=== PATIENT | male | born 1950 | race Caucasian/White ===

== ENCOUNTER → 2017-04-11 | Outpatient (CLI) | payer MEDICARE, OTHER ==
[2013-10-03 11:54] VITALS: BMI 38.4
[~2017-04-11] MED LIST: ALB18R INH; ALBU8.5H12 IH; AML5 PO; AMLO-99 PO; ASP81 PO; ASPI81TA87 PO; ATOR10TA24 PO; ATR10 PO; AZIT-17 PO; BENA40TA51 PO; CEPH-13 PO; FLU45SYR25 IM ONLY; FLUT16SP19 NS; FLUT1AER INH; FLUT1DIS29 INH; FURO-45 PO; GLY5 PO; HCTZ25 PO; INSU100I10 SUBQ; INSU100I30 SQ; LANI SQ; LANI SUBQ; LISI-351 PO; LISI-353 PO; LISI-355 PO; LISI1TAB61 PO; METF-410 PO; METF-420 PO; METO-253 PO; METO100T20 PO; METO25TA93 PO; MONT10TA PO; NAPR-1043 PO; NEED-498 MC; OMEP-137 PO; OMEP-218 PO; OXYGENHOME INH; PHEN-460 PO; PHEN15CA69 PO; PIOG30TA27 PO; PRED-1 PO; RAMI5CAP63 PO; RANI-318 PO; RANI-324 PO; ROSU5TAB8 PO; TIO18R INH
== END ==
LOC: LAB 09:21
PROVIDERS: ATTEND Emergency Medicine
DX: E11.9 Type 2 diabetes mellitus without complications (principal)
CPT/HCPCS: 36415; 83036

== ENCOUNTER → 2017-10-14 | Outpatient (CLI) | payer MEDICARE, OTHER ==
[2013-10-03 11:54] VITALS: BMI 38.4
[~2017-10-14] MED LIST changes: -METF-410 PO; +METF-411 PO; +METF-421 PO; -RANI-324 PO; +RANI-366 PO
[2017-10-14 09:31] LABS: PLATELET COUNT, AUTOMATED 163 K/uL (150-450)
[2017-10-14 09:39] LABS: LDL CHOLESTEROL 31 mg/dl
== END ==
LOC: LAB 08:44
PROVIDERS: ATTEND Emergency Medicine
DX: E11.9 Type 2 diabetes mellitus without complications (principal); Z12.5 Encounter for screening for malignant neoplasm of prostate
CPT/HCPCS: 36415; 83036; 85025; G0103; 82040; 82247; 82310; 82374; 82435; 82465; 82565; 82947; 83718; 84075; 84132; 84153; 84155; 84295; 84450; 84460; 84478; 84520

== ENCOUNTER → 2017-10-25 | Outpatient (CLI) | payer MEDICARE, OTHER ==
[2013-10-03 11:54] VITALS: BMI 38.4
[~2017-10-25] MED LIST changes: +AMLO-113 PO; -AMLO-99 PO; -METF-411 PO; -METF-421 PO; +METF-450 PO; +METF-452 PO
== END ==
LOC: LAB 07:40
PROVIDERS: ATTEND Emergency Medicine
DX: Z12.11 Encounter for screening for malignant neoplasm of colon (principal)
CPT/HCPCS: 82274

== ENCOUNTER → 2017-10-27 | Outpatient (CLI) | payer MEDICARE, OTHER ==
[2013-10-03 11:54] VITALS: BMI 38.4
--- NOTE | 2017-10-27 12:02 | RADIOLOGY IMAGING REPORT ---
FACILITY: [facility] - [place] PATIENT NAME: Jac Virk : 1950 MR: [id number] V: [id number] EXAM DATE: ORDERING PHYSICIAN: JENN ORTIZ TECHNOLOGIST: [place] [facility] [place] Jac Virk : 1950 Visit/Account:[id number] Date of Sevice: 10/27/2017 CHEST/AB/PELV W/OUT CONTRAST HISTORY: aortic ectasia, adrenal mass ADDITIONAL HISTORY: None. TECHNIQUE: Contiguous axial images acquired through the chest abdomen and pelvis without IV contrast. Coronal and sagittal reformatting was also performed. Dose Lowering Technique One of the following dose optimization techniques was utilized in the performance of this exam: Autom ated exposure control; adjustment of the mA and/or kV according to the patient's size; or use of an i terative reconstruction technique. Specific details can be referenced in the facility's radiology C T exam operational policy. COMPARISON: CTA chest October 12, [address] chest seven pelvis October 04, 2014 FINDINGS: CHEST: Lungs/Pleura: There are multiple small calcified nodules seen throughout the lungs Mediastinum/lymph nodes: Small mediastinal lymph nodes appear relatively stable Heart/vessels: Fusiform dilatation of the ascending thoracic aorta is slightly increased now measuri ng 4.5 cm in AP dimension as opposed to 4 cm previously. The aortic lumen is not evaluated due to la ck of contrast. There are mild atherosclerotic calcifications in the aortic arch and descending thor acic aorta. Bones/soft tissues: There is a levoconvex scoliosis of the upper thoracic spine with spondylotic jh nges ABDOMEN AND PELVIS: Hepatobiliary: Tiny calcified granuloma Spleen: Negative. Pancreas: Negative. Adrenals: Right adrenal gland appears unremarkable. Three Polylobular left adrenal mass appears well totally unchanged in size measuring 3.6 x 2.6 cm contains some calcifications and areas of fatty density. Kidneys ureters and bladder : There Is mild perinephric stranding bilaterally. There is moderate bl adder wall thickening that appears slightly irregular. Genitalia: Prostate gland is moderately enlarged impinging upon the floor the bladder. The seminal v esicles also appear prominent GI: Negative. Vessels/spaces/nodes: Moderate atherosclerotic calcifications of the abdominal aorta and branch vess els . Small shotty retroperitoneal lymph nodes Bones/soft tissues: Small umbilical hernia containing fat. There are spondylotic changes of the tho racolumbar spine Additional findings: None pertinent. IMPRESSION: Fusiform dilatation of the ascending thoracic aorta is slightly increased now measuring 4.5 cm in AP dimension as opposed to 4 cm previously. Evidence of a prior granulomatous process Polylobular left adrenal mass containing calcium and fat appears relatively unchanged Moderate irregular bladder wall thickening. This could be related to the enlarged prostate gland alt yadiel clinical correlation needed. Report Dictated By: Marisol Jiménez MD at 10/27/2017 11:40 AM Report E-Signed By: Marisol Jiménez MD at 10/27/2017 11:58 AM WSN:[email or web address]
== END ==
LOC: CT 01:19
PROVIDERS: ATTEND Emergency Medicine
DX: I77.810 Thoracic aortic ectasia (principal); K42.9 Umbilical hernia without obstruction or gangrene; K75.3 Granulomatous hepatitis, not elsewhere classified; M41.84 Other forms of scoliosis, thoracic region
CPT/HCPCS: 71250; 74176

== ENCOUNTER → 2017-12-11 | Outpatient (CLI) | payer MEDICARE, OTHER ==
[2013-10-03 11:54] VITALS: BMI 38.4
== END ==
LOC: US 02:06
PROVIDERS: ATTEND Internal Medicine Cardiovascular Disease
DX: I51.7 Cardiomegaly (principal); I72.1 Aneurysm of artery of upper extremity
CPT/HCPCS: 93306

== ENCOUNTER 2017-12-24 01:26 | Day surgery (SDC) | payer MEDICARE, OTHER ==
[2013-10-03 11:54] VITALS: Ht 177.8 cm; Wt 111.1 kg
[~2017-12-24] VITALS: Ht 177.8 cm; Wt 111.1 kg
[2017-12-24 08:11] VITALS: BP 143/79
[2017-12-24] MEDS ORDERED: NORMOSOL R SOLN(*) 1000 ML BAG 1,000 ML IV PRN (08:20)
[2017-12-24] MEDS ORDERED: LIDOCAINE/SOD BICARB 8.4% SYR ID ONE (08:20)
[2017-12-24 09:53] VITALS: BP 111/72
--- NOTE | 2017-12-24 10:00 | Short(Outpt) Discharge Summary ---
Discharge Summary Reason for Hosp/Final Diag: (1) Colon cancer screening Status: Chronic Hospital Course & Plan: Colonoscopy with polypectomy x1 completed without problems. Departure Discharge to: Home, Self Care Discharge Instructions Home Meds Active Scripts Metoprolol Succinate (METOPROLOL SUCCINATE) 100 Mg Tab.er.24h, 1 TAB PO QDAY, #90 TAB 3 Refills Prov:JENN ORTIZ MD 12/12/17 Insulin Glargine,Hum.rec.anlog (Basaglar Kwikpen U-100) 100 Unit/Ml (3 Ml) Insuln.pen, 28-38 UNITS SUBQ BID, #2 BOX 7 Refills 28 units Sub-Q every morning. 38 units Sub-Q every evening. Prov:JENN ORTIZ MD 11/21/17 Rosuvastatin Calcium (CRESTOR) 5 Mg Tablet, 1 TAB PO QDAY, #90 TAB 4 Refills Prov:JENN ORTIZ MD 11/12/17 [place], Insulin Disposable (INSULIN PEN NEEDLE) 1 Each Dis.needle, 1 EACH MC BID, #50 11 Refills Prov:JENN ORTIZ MD 06/24/17 Lisinopril/Hydrochlorothiazide (LISINOPRIL-HCTZ 20-25 MG TAB) 1 Each Tablet, 1.5 TAB PO DAILY, #135 TAB 4 Refills Prov:JENN ORTIZ MD 02/05/17 Montelukast Sodium (SINGULAIR) 10 Mg Tablet, 1 TAB PO QDAY, #30 TAB 11 Refills Prov:JENN ORTIZ MD 12/25/16 Albuterol Sulfate (VENTOLIN HFA) 18 Gm Inh, 2 PUFF INH TID PRN for to help breathing., #1 INH 11 Refills Prov:JENN ORTIZ MD 10/15/16 Fluticasone Prop 50 Mcg Ns (FLONASE 50 MCG NS) 16 Gm [place].susp, 2 SPRAYS NS QDAY, #1 BOT 11 Refills Prov:JENN ORTIZ MD 10/15/16 Metformin Hcl (METFORMIN HCL) 1,000 Mg Tablet, 1 TAB PO BID, #180 TAB 3 Refills TAKE ONE TABLET BY MOUTH TWO TIMES A DAY Prov:JENN ORTIZ MD 10/15/16 Metformin Hcl (METFORMIN HCL) 500 Mg Tablet, 1 TAB PO QDAY, #90 TAB 3 Refills Prov:JENN ORTIZ MD 10/15/16 Furosemide (FUROSEMIDE) 20 Mg Tablet, 1 TAB PO once weekly PRN for edema, #45 TAB 3 Refills Prov:JENN ORTIZ MD 07/01/16 Oxygen (OXYGEN) 2 L Inha, 3 L INH continuous for COPD, #1 UNIT Prov:JENN ORTIZ MD 10/12/15 Reported Medications Aspirin (LO-DOSE ASPIRIN EC) 81 Mg Tablet.dr, 81 MG PO QAM 09/27/13 Diet: Regular Activity: As Tolerated Special Instructions: Your colonoscopy was completed without problems and your prep was excellent (Good Job!!). I removed a small polyp from your colon and it was sent to pathology. My office will call you in the next week or two to let you know what the polyp is and when your next colonoscopy should be (either 5 or 10 years) depending on the pathology results. DAY NAM MD Dec 24, 2017 10:00
[2017-12-24 10:21] VITALS: BP 114/73
[2017-12-24 10:23] VITALS: BP 113/84
[2017-12-24] MEDS ORDERED: PROPOFOL EMUL(*) 10MG/ML 20 ML 60 ML ONE (12:32)
== END 2017-12-24 10:45 | disposition home or self-care (01) ==
LOC: OR 01:26
PROVIDERS: ATTEND Surgery
DX: Z12.11 Encounter for screening for malignant neoplasm of colon (principal); D12.5 Benign neoplasm of sigmoid colon; J44.9 Chronic obstructive pulmonary disease, unspecified; K21.9 Gastro-esophageal reflux disease without esophagitis; E11.9 Type 2 diabetes mellitus without complications; I25.10 Atherosclerotic heart disease of native coronary artery without angina pectoris; G25.81 Restless legs syndrome; E66.9 Obesity, unspecified; E78.00 Pure hypercholesterolemia, unspecified; G47.33 Obstructive sleep apnea (adult) (pediatric); R09.02 Hypoxemia; Z68.35 Body mass index [BMI] 35.0-35.9, adult
CPT/HCPCS: 00811; 36416; 45385; 82948; 88305; J2704

== ENCOUNTER → 2018-04-14 | Outpatient (CLI) | payer MEDICARE, OTHER ==
[2013-10-03 11:54] VITALS: BMI 38.4
[~2018-04-14] MED LIST changes: -AMLO-113 PO; +AMLO-127 PO
== END ==
LOC: LAB 08:41
PROVIDERS: ATTEND Emergency Medicine
DX: E11.9 Type 2 diabetes mellitus without complications (principal); Z79.4 Long term (current) use of insulin
CPT/HCPCS: 36415; 83036

== ENCOUNTER → 2018-05-25 | Outpatient (CLI) | payer MEDICARE, OTHER ==
[2013-10-03 11:54] VITALS: BMI 38.4
[~2018-05-25] MED LIST changes: +UMEC1DIS INH
== END ==
LOC: LAB 09:37
PROVIDERS: ATTEND Emergency Medicine
DX: I10 Essential (primary) hypertension (principal)
CPT/HCPCS: 36415; 82310; 82374; 82435; 82565; 82947; 84132; 84295; 84520

== ENCOUNTER → 2018-06-24 | Outpatient (CLI) | payer MEDICARE, OTHER ==
[2013-10-03 11:54] VITALS: BMI 38.4
== END ==
LOC: LAB 13:42
PROVIDERS: ATTEND Otolaryngology
DX: J30.9 Allergic rhinitis, unspecified (principal)
CPT/HCPCS: 36415; 86003

== ENCOUNTER 2018-09-02 14:57 | Emergency (ER) | payer MEDICARE, OTHER ==
[2013-10-03 11:54] VITALS: Wt 111.3 kg
[~2018-09-02 14:57] MED LIST changes: -LOR5/325 PO
[2018-09-02] MEDS: NITROGLYCERIN 0.4 MG SUBL SL SCH ×3 (15:09→15:37)
[2018-09-02 15:16] LABS: PLATELET COUNT, AUTOMATED 174 K/uL (150-450)
--- NOTE | 2018-09-02 15:18 | ER Report ---
History and Physical Time Seen By MD: 14:55 Hx. of Stated Complaint: CP X 1 HR (GERGORY MANCERA DO) HPI/ROS CHIEF COMPLAINT: chest pain HISTORY OF PRESENT ILLNESS: PT states he was out working on his car and started with chest pain one hour ago. Pain is worse with deep breath. Tight and achy and radiates to left shoulder. no nausea. Never had this pain before. Denies hx of heart attack but does have htn, dm, hyperlipid. EMS gave patient 4 baby asa, morphine 4mg and one nitro which brought his pain from 8/ to 6/. REVIEW OF SYSTEMS: Constitutional: No fever, no chills. Eyes: No discharge. ENT: No sore throat. Cardiovascular: + chest pain, no palpitations. Respiratory: No cough, + shortness of breath. Gastrointestinal: No abdominal pain, no vomiting. Genitourinary: No hematuria. Musculoskeletal: No back pain. Skin: No rashes. Neurological: No headache. (GREGORY MANCERA DO) Allergies: Coded Allergies: simvastatin (Unverified Allergy, Unknown, 09/02/18) Home Meds Active Scripts Ranitidine Hcl (ZANTAC) 150 Mg Tablet, 150 MG PO BID, #60 TAB 0 Refills Prov:JHONNY GUSTAFSON MD 09/02/18 Hydrocodone Bit/Acetaminophen (HYDROCODON-ACETAMINOPHEN 5-325) 1 Each Tablet, 1 EACH PO Q4H PRN for PAIN, #8 TAB 0 Refills Prov:JHONNY GUSTAFSON MD 09/02/18 Rosuvastatin Calcium (CRESTOR) 5 Mg Tablet, 1 TAB PO QDAY, #90 TAB 1 Refill Prov:JENN ORTIZ MD 07/10/18 Furosemide (FUROSEMIDE) 20 Mg Tablet, 1 TAB PO once weekly PRN for edema, #12 TAB 3 Refills Prov:JENN ORTIZ MD 05/28/18 Umeclidinium Brm/Vilanterol Tr (Anoro Ellipta 62.5-25 Mcg INH) 1 Each Disk.w.dev, 1 INHALATION INH DAILY, #3 INH 3 Refills Prov:JENN ORTIZ MD 05/28/18 Lisinopril/Hydrochlorothiazide (LISINOPRIL-HCTZ 20-25 MG TAB) 1 Each Tablet, 2 TAB PO DAILY, #180 TAB 4 Refills Prov:JENN ORTIZ MD 05/08/18 Metformin Hcl (METFORMIN HCL) 1,000 Mg Tablet, 1 TAB PO BID for 90 Days, #180 TAB 3 Refills TAKE ONE TABLET BY MOUTH TWO TIMES A DAY Prov:JENN ORTIZ MD 02/04/18 Montelukast Sodium (SINGULAIR) 10 Mg Tablet, 1 TAB PO QDAY, #30 TAB 11 Refills Prov:JENN ORTIZ MD 01/30/18 Metformin Hcl (METFORMIN HCL) 500 Mg Tablet, 1 TAB PO QDAY, #90 TAB 3 Refills Prov:JENN ORTIZ MD 01/30/18 Metoprolol Succinate (METOPROLOL SUCCINATE) 100 Mg Tab.er.24h, 1 TAB PO QDAY, #90 TAB 3 Refills Prov:JENN ORTIZ MD 12/12/17 Insulin Glargine,Hum.rec.anlog (Basaglar Kwikpen U-100) 100 Unit/Ml (3 Ml) Insuln.pen, 28-38 UNITS SUBQ BID, #2 BOX 7 Refills 28 units Sub-Q every morning. 38 units Sub-Q every evening. Prov:JENN ORTIZ MD 11/21/17 [place], Insulin Disposable (INSULIN PEN NEEDLE) 1 Each Dis.needle, 1 EACH MC BID, #50 11 Refills Prov:JENN ORTIZ MD 06/24/17 Albuterol Sulfate (VENTOLIN HFA) 18 Gm Inh, 2 PUFF INH TID PRN for to help breathing., #1 INH 11 Refills Prov:JENN ORTIZ MD 10/15/16 Fluticasone Prop 50 Mcg Ns (FLONASE 50 MCG NS) 16 Gm [place].susp, 2 SPRAYS NS QDAY, #1 BOT 11 Refills Prov:JENN ORTIZ MD 10/15/16 Oxygen (OXYGEN) 2 L Inha, 3 L INH continuous for COPD, #1 UNIT Prov:JENN ORTIZ MD 10/12/15 Reported Medications Aspirin (LO-DOSE ASPIRIN EC) 81 Mg Tablet.dr, 81 MG PO QAM 09/27/13 Past Medical/Surgical History Pmhx and Pshx: abd aortic aneurysm, hyperlipid, htn, copd, sleep apnea, gerd, hemorrhoids, pud, Dm2, obesity, prostate CA (CALDERONGREGORY V DO) Reviewed Nurses Notes: Yes Old Medical Records Reviewed: Yes (CALDERON,GREGORY V DO) Hx Smoking: Yes (35 YEAR SMOKER PACK/DAY) Smoking Status: Former Smoker Exposure to Second Hand Smoke?: No Hx Substance Use Disorder: No Hx Alcohol Use: No (CALDERON,GREGORY V DO) Constitutional Vital Sign - Last 24 Hours 09/02/18 09/02/18 09/02/18 09/02/18 14:59 15:00 15:03 15:05 Temp 98.5 Pulse 86 91 88 Resp 18 23 23 B/P (MAP) 175/129 175/129 (144) 181/99 (126) Pulse Ox 90 91 95 O2 Delivery Nasal Cannula 09/02/18 09/02/18 09/02/18 09/02/18 15:09 15:10 15:15 15:20 Pulse 86 87 82 Resp 23 B/P (MAP) 168/83 (111) 148/76 (100) 147/87 (107) Pulse Ox 94 93 94 O2 Flow Rate 6.0 09/02/18 09/02/18 09/02/18 09/02/18 15:25 15:30 15:33 15:35 Pulse 78 76 77 B/P (MAP) 146/84 (104) 152/81 (104) 144/80 (101) Pulse Ox 93 94 93 09/02/18 09/02/18 09/02/18 09/02/18 15:40 15:45 15:50 15:55 Pulse 76 78 76 77 B/P (MAP) 143/89 (107) 143/78 (99) 132/81 (98) 137/82 (100) Pulse Ox 94 94 93 93 09/02/18 09/02/18 09/02/18 09/02/18 16:00 16:05 16:10 16:15 Pulse 73 73 74 71 B/P (MAP) 137/76 (96) 141/75 (97) 139/75 (96) Pulse Ox 95 94 94 93 09/02/18 09/02/18 09/02/18 09/02/18 16:20 16:45 17:15 17:30 Pulse 69 67 ??? 66 Resp 19 B/P (MAP) 129/80 (96) 162/74 (103) 137/73 (94) Pulse Ox 93 94 95 09/02/18 09/02/18 09/02/18 09/02/18 17:45 18:00 18:15 18:30 Pulse 67 64 66 67 Resp 10 11 21 16 B/P (MAP) 143/75 (97) 138/69 (92) 127/73 (91) 125/69 (87) Pulse Ox 95 95 95 95 09/02/18 09/02/18 09/02/18 09/02/18 18:35 18:45 18:55 19:00 Pulse 65 65 64 Resp 20 B/P (MAP) 129/73 (91) 134/72 (92) Pulse Ox 95 09/02/18 09/02/18 09/02/18 09/02/18 19:05 19:15 19:25 19:30 Pulse 62 62 64 Resp 12 23 23 B/P (MAP) 130/70 (90) 131/72 (91) Pulse Ox 96 95 94 09/02/18 09/02/18 09/02/18 09/02/18 19:35 19:45 19:55 20:00 Pulse 64 70 63 Resp 12 25 B/P (MAP) 115/69 (84) 130/72 (91) Pulse Ox 93 94 09/02/18 09/02/18 09/02/18 20:05 20:15 20:20 Pulse 64 61 61 Resp 17 13 22 B/P (MAP) 118/70 (86) Pulse Ox 95 96 96 ([facility]) Physical Exam General Appearance: The patient is alert, has no immediate need for airway protection and no signs of toxicity. Eyes: Pupils equal and round no pallor or injection, EOMI ENT: no pharyngeal erythema or exudates, Mucous membranes are moist, TM are nl b/l Respiratory: There are no retractions, lungs are clear in upper airways but crackles at the bases Cardiovascular: Regular rate and rhythm. pulses are equal and symmetrical Gastrointestinal: Abdomen is soft and non tender, no masses, bowel sounds normal, no guarding, no rigidity or rebound Neurological: Cranial nerves II-XII grossly intact, no sensory or motor loss Skin: Warm and dry, no rashes. Musculoskeletal: Neck is supple non tender, no vertebral tenderness Extremities are nontender, nonswollen and have full range of motion. DIFFERENTIAL DIAGNOSIS: After history and physical exam differential diagnosis was considered for acute mi, acs, aortic dissection, pe, pneumonia, copd exacerbation (LAURORA,GREGORY V DO) Medical Decision Making Data Points Result Diagram: 09/02/18 1505 09/02/18 1505 Laboratory Hematology Test 09/02/18 15:05 White Blood Count 10.0 k/uL (4.5-11.0) Red Blood Count 4.69 M/uL (4.00-5.60) Hemoglobin 14.4 g/dL (14.0-18.0) Hematocrit 42.1 % (42.0-52.0) Mean Corpuscular Volume 89.9 fL (80.0-96.0) Mean Corpuscular Hemoglobin 30.7 pg (26.0-33.0) Mean Corpuscular Hemoglobin Concent 34.2 g/dL (32.0-36.0) Red Cell Distribution Width 13.9 % (11.5-14.5) Platelet Count 174 K/uL (150-450) Mean Platelet Volume 8.3 fL (7.2-11.1) Neutrophils (%) (Auto) 73.7 % (39.4-72.5) H Lymphocytes (%) (Auto) 17.9 % (17.6-49.6) Monocytes (%) (Auto) 5.9 % (4.1-12.4) Eosinophils (%) (Auto) 1.4 % (0.4-6.7) Basophils (%) (Auto) 1.1 % (0.3-1.4) Nucleated RBC Relative Count (auto) 0.0 /100WBC Neutrophils # (Auto) 7.4 K/uL (2.0-7.4) Lymphocytes # (Auto) 1.8 K/uL (1.3-3.6) Monocytes # (Auto) 0.6 K/uL (0.3-1.0) Eosinophils # (Auto) 0.1 K/uL (0.0-0.5) Basophils # (Auto) 0.1 K/uL (0.0-0.1) Nucleated RBC Absolute Count (auto) 0.00 K/uL Chemistry Test 09/02/18 00:00 09/02/18 15:05 09/02/18 19:26 B-Type Natriuretic Peptide 76 pg/ml (0-100) Lipase 125 U/L (23-300) Sodium Level 140 mmol/L (137-145) Potassium Level 3.8 mmol/L (3.5-5.0) Chloride Level 106 mmol/L (98-107) Carbon Dioxide Level 23 mmol/L (22-30) Blood Urea Nitrogen 18 mg/dl (9-21) Creatinine 1.20 mg/dl (0.66-1.25) Glomerular Filtration Rate Calc > 60.0 Random Glucose 75 mg/dl (75-110) Calcium Level 8.9 mg/dl (8.4-10.2) Total Bilirubin 0.6 mg/dl (0.2-1.3) Aspartate Amino Transf (AST/SGOT) 24 U/L (0-35) Alanine Aminotransferase (ALT/SGPT) 27 U/L (0-56) Alkaline Phosphatase 51 U/L (0-126) Total Protein 6.8 g/dl (6.3-8.2) Albumin 4.1 g/dl (3.5-5.0) Troponin I < 0.012 ng/ml Coagulation Test 09/02/18 00:00 09/02/18 15:05 D-Dimer Quantitative (PE/DVT) < 0.27 ug/ml (0-0.50) Prothrombin Time 12.8 seconds (12.0-14.4) Prothromb Time International Ratio 0.97 Activated Partial Thromboplast Time 28 seconds (23-35) (JHONNY GUSTAFSON MD) EKG/Imaging EKG Interpretation nsr @ [facility] similar to prior 02-oct-2013 Imaging napd (GREGORY MANCERA DO) ED Course/Re-evaluation Clinical Indication for ER IV: IV Access ED Course Check labs, ekg and cxr (GREGORY MANCERA DO) ED Course I reviewed this patient with Dr. Mancera at shift change and assumed care. Patient with negative workup for chest pain, awaiting a repeat troponin. This repeat was negative. Patient did have some increase pain, did not improve with an additional nitro. Vital signs stable. Patient will return home, start Zantac, add Ibuprofen and Lortab as needed and call primary care and cardiology for follow-up this week. Return precautions discussed and light activity recommended until follow-up. Decision to Disposition Date: Sep 02, 2018 Decision to Disposition Time: 20:25 (JHONNY GUSTAFSON MD) Depart Departure Latest Vital Signs Vital Signs Date Time Temp Pulse Resp B/P (MAP) Pulse Ox O2 Delivery O2 Flow Rate FiO2 09/02/18 20:20 61 22 96 09/02/18 20:15 118/70 (86) 09/02/18 15:09 6.0 09/02/18 14:59 98.5 Nasal Cannula (JHONNY GUSTAFSON MD) Impression: Primary Impression: Chest pain Condition: Improved Disposition: HOME OR SELF-CARE Referrals: JENN ORTIZ MD (PCP) New Scripts Ranitidine Hcl (ZANTAC) 150 Mg Tablet 150 MG PO BID, #60 TAB 0 Refills Prov: JHONNY GUSTAFSON MD 09/02/18 Hydrocodone Bit/Acetaminophen (HYDROCODON-ACETAMINOPHEN 5-325) 1 Each Tablet 1 EACH PO Q4H PRN for PAIN, #8 TAB 0 Refills Prov: JHONNY GUSTAFSON MD 09/02/18 Patient Instructions: Chest Pain (ED) Additional Instructions: Tonight you were evaluated for chest pain. We did not find a specific cause for the chest pain tonight. We were able to rule out acute heart attack, problems with aneurysm, lung problems such as pneumonia as or blood clots. We think the pain might be due to inflammation in the chest wall or lungs, or possibly due to spasming from the GI tract, but do not have a definitive answer for why the pain is there. We would like to have you follow up with your regular doctor and with cardiology this week. You can take ibuprofen 200 mg [id number] tablets, 4 tablets every 8 hours as needed for pain. Lortab 5/325, one every 4 hours as needed for pain. We would also recommend starting Zantac 150 mg twice a day. Return to the ER for reevaluation if you have recurrent onset of severe symptoms. We recommend light activity until you follow up with cardiology. Problem Qualifiers Primary Impression: Chest pain Chest pain type: unspecified Qualified Codes: R07.9 - Chest pain, unspecified QIANAGREGORY PALMA Jannette FAUST Sep 02, 2018 15:18 JHONNY GUSTAFSON MD Sep 02, 2018 18:17
[2018-09-02 15:25] LABS: INR 0.97
[2018-09-02] MEDS ORDERED: fentaNYL CITR 100 MCG/2 ML AMP IVP ONE ×2 (15:25→16:35)
--- NOTE | 2018-09-02 15:29 | EKG ---
FACILITY: [facility] PATIENT NAME: PRICILA MEDINA : [id number] MR: [id number] V: [id number] EXAM DATE: ORDERING PHYSICIAN: GREGORY MANCERA TECHNOLOGIST: CHERY Test Reason : CP Blood Pressure : / mmHG Vent. Rate : 087 BPM Atrial Rate : 087 BPM P-R Int : 174 ms QRS Dur : 112 ms QT Int : 378 ms P-R-T Axes : 046 -73 044 degrees QTc Int : 454 ms Normal sinus rhythm Left anterior fascicular block Abnormal ECG When compared with ECG of 02-OCT-2013 13:24, Previous ECG has undetermined rhythm, needs review Criteria for Septal infarct are no longer present Confirmed by DAY BERGERON ([id number]) on 09/03/2018 6:28:23 AM Referred By: CALDERON Confirmed By:DAY BERGERON
--- NOTE | 2018-09-02 15:55 | RADIOLOGY IMAGING REPORT ---
FACILITY: [facility] - [place] PATIENT NAME: Jac Virk : 1950 MR: [id number] V: [id number] EXAM DATE: ORDERING PHYSICIAN: GREGORY MANCERA TECHNOLOGIST: Location: [facility] [place] Patient: Jac Virk : 1950 Visit/Account:[id number] Date of Sevice: 09/02/2018 CHEST SINGLE AP History: Chest Pain FINDINGS: Comparison studies: 02/03/2008 Tubes and Lines: None. Lungs and pleura: Well aerated. No evidence of focal consolidation or pleural effusions. Mediastinum: normal. Cardiac silhouette: normal . Osseous structures: Unremarkable for age . IMPRESSION: Normal chest Report Dictated By: Russel Neil MD at 09/02/2018 3:45 PM Report E-Signed By: Russel Neil MD at 09/02/2018 3:46 PM WSN:[email or web address]
[2018-09-02] MEDS ORDERED: IOPAMIDOL 76% 100 ML INFUS BTL 100 ML ONE (16:56)
[2018-09-02] MEDS ORDERED: NS(*) 0.9% 50 ML BAG 50 ML ONE (16:56)
--- NOTE | 2018-09-02 18:05 | RADIOLOGY IMAGING REPORT ---
FACILITY: [facility] PATIENT NAME: Jac Virk : 1950 MR: [id number] V: [id number] EXAM DATE: ORDERING PHYSICIAN: GREGORY MANCERA TECHNOLOGIST: Location: Patient: Jac Virk : 1950 Visit/Account:[id number] Date of Sevice: 09/02/2018 EXAMINATION: CTA of the chest, abdomen, and pelvis with IV contrast HISTORY: Chest pain and shortness of breath. History of ascending aortic aneurysm. TECHNIQUE: Thin axial CT images of the chest, abdomen, and pelvis were obtained with IV contrast duri ng maximal arterial opacification. Reconstruction of the source data set includes multiplanar 2D sagi ttal and coronal images, and 3D coronal and sagittal thick slab MIP images. [employer] images hav e been stored on PACS. One of the following dose optimization techniques was utilized in the performance of this exam: Autom ated exposure control; adjustment of the mA and/or kV according to the patient's size; or use of an i terative reconstruction technique. Specific details can be referenced in the facility's radiology C T exam operational policy. Contrast: 75 mL of IV Isovue-370. COMPARISON: CT chest, abdomen, pelvis without contrast 10/27/2017. CTA chest with IV contrast 10/12/2015. FINDINGS: Angiographic findings: Thoracic aorta: Stable aneurysmal dilatation of the ascending thoracic aorta, measuring 4.5 x 4.1 cm. No aortic dissection. The aortic arch and descending thoracic aorta are normal in caliber. Mild athe rosclerotic calcification along the thoracic aorta. Origins of great vessels are normal in caliber wi th conventional arch anatomy. Pulmonary arteries: Exam was not performed with pulmonary embolism protocol. The pulmonary arteries a re poorly opacified. Heart: Normal heart size. No pericardial effusion. Abdominal aorta: Patent and normal in caliber with mild atherosclerotic calcification. No aortic aneu rysm, dissection, or stenosis. Iliac arteries: Mild atherosclerotic calcification. Patent and normal in caliber bilaterally. Abdominal aorta branch vessels: The celiac artery and SMA are widely patent and normal in caliber. Th e MARLENI is patent. There is a single right and 2 left-sided renal arteries without evidence of stenosis . Nonvascular findings: Lungs and pleura: Mild scarring or atelectasis in the lower lungs. No suspicious focal consolidation . Calcified granulomas in the right lung. Mediastinum and akira: Negative. Liver: Negative. Gallbladder and bile ducts: Negative. Spleen: Negative. Pancreas: Negative. Adrenal glands: Stable partially calcified hypodense left adrenal mass measuring up to 3.5 cm. The r ight adrenal gland is unremarkable. Kidneys: Negative. No hydronephrosis or urinary calculi. Bowel and peritoneum: The small bowel and colon are normal in caliber, without evidence of obstructi on or any focal inflammatory process. Normal appendix. No free fluid or free intraperitoneal air. Pelvic structures: Negative. Lymph node assessment: Negative. Musculoskeletal: Negative. Body wall: Negative. IMPRESSION: 1. Stable aneurysmal dilatation of the ascending thoracic aorta measuring up to 4.5 cm. No aortic dis section. The descending thoracic aorta and abdominal aorta are normal in caliber. 2. Mild scarring or atelectasis in the lower lungs. No suspicious focal consolidation. 3. No other acute findings in the chest, abdomen, or pelvis. Report Dictated By: Diony Ruiz MD at 09/02/2018 5:45 PM Report E-Signed By: Diony Ruiz MD at 09/02/2018 5:57 PM WSN:[id number]
[2018-09-02] MEDS ORDERED: NITROGLYCERIN 0.4 MG SUBL SL ONE (19:40)
[2018-09-02 20:30] VITALS: BP 124/68
[2018-09-02] MEDS ORDERED: APAP/HYDROCODONE 325/5 TAB PO ONE (20:30)
[2018-09-02] MEDS ORDERED: RANITIDINE HCL 150 MG TAB PO ONE (20:30)
[2018-09-02] MEDS ORDERED: ACET/HYDROC 5/325MG TH ER ONLY 2 TAB/BOTTLE PO ONE (20:30)
[2018-09-02] MEDS ORDERED: LOR5/325 PO (20:31)
[2018-09-02] MEDS ORDERED: RANI-54 PO (20:31)
== END 2018-09-02 20:44 | disposition home or self-care (01) ==
LOC: ER 15:03
DX: R07.9 Chest pain, unspecified (principal)
CPT/HCPCS: 36415; 71045; 71275; 74174; 83690; 83880; 84484; 85025; 85379; 85610; 85730; 93005; 96374; 96376; 99284; A9270; J3010; J7050; Q9967; 82040; 82247; 82310; 82374; 82435; 82565; 82947; 84075; 84132; 84155; 84295; 84450; 84460; 84520

== ENCOUNTER → 2018-09-02 | Outpatient (CLI) | payer MEDICARE, OTHER ==
[2013-10-03 11:54] VITALS: BMI 38.4
[~2018-09-02] MED LIST changes: +ASPI-143 PO; -ASPI81TA87 PO; +LOR5/325 PO; -RANI-366 PO; +RANI-54 PO
== END ==
LOC: AMB 14:25
PROVIDERS: ATTEND Nurse Practitioner
DX: R07.9 Chest pain, unspecified (principal); M25.512 Pain in left shoulder
CPT/HCPCS: A0425; A0427

== ENCOUNTER → 2018-09-17 | Outpatient (CLI) | payer MEDICARE, OTHER ==
[2013-10-03 11:54] VITALS: BMI 38.4
[~2018-09-17] MED LIST changes: +LOR5/325 PO; +REGADENOSON 0.4 MG/5 ML SYR ONE
--- NOTE | 2018-09-17 13:01 | RADIOLOGY IMAGING REPORT ---
FACILITY: [facility] - [place] PATIENT NAME: Jac Virk : 1950 MR: [id number] V: [id number] EXAM DATE: ORDERING PHYSICIAN: JENN ORTIZ TECHNOLOGIST: Location: [facility] - [place] Patient: Jac Virk : 1950 Visit/Account:[id number] Date of Sevice: 09/17/2018 EXAMINATION: Single isotope SPECT imaging with regadenoson infusion and gated SPECT imaging. DATE OF EXAMINATION: 09/17/2018. DATE OF INTERPRETATION: 09/17/2018. REQUESTING PHYSICIAN: JENN ORTIZ. INDICATION: The patient is a 67-year-old male evaluated for chest pain. PROCEDURE: After informed consent the patient received an intravenous injection of 12.9 mCi of Tc-99 m sestamibi followed at an appropriate time interval by rest imaging. The patient then subsequently received an intravenous infusion of 0.4 mg of regadenoson per protocol without complication. Resting heart rate was 49 bpm with a peak heart rate of 75 bpm. Blood pressure at rest was 144 / 74 and fol lowing infusion was 144 / 74. Baseline EKG demonstrates normal sinus rhythm, left anterior fascicula r block, no ST or T-wave abnormalities. There were no EKG changes of ischemia following infusion. S ymptoms were nonspecific. The patient then received an intravenous injection of 29.1 mCi of Tc-99m s estamibi followed by stress imaging. RAW DATA: Examination of the summed raw data revealed a good quality study. MYOCARDIAL PERFUSION: The tomographic images demonstrate mild, small defect in the inferior wall, mo st pronounced in the basal region at rest, largely unchanged with stress but does appear to get vianney r with prone imaging suggesting diaphragmatic attenuation. There may be a small, fixed inferior defec t consistent with prior RCA infarct but no evidence of ischemia. GATED IMAGES: The gated images demonstrate normal wall motion, ejection fraction 72%. IMPRESSION: 1. Good quality study 2. Normal myocardial perfusion scan. Mild fixed inferoseptal defect may be consistent with prior RCA infarct but normal wall motion suggests likely diaphragmatic attenuation. 3. Normal LV systolic function; LVEF 72%. 4. Based on the results of this exam, the patient appears to be at low risk for future cardiovascular events but remains intermediate risk due to inability to exercise. Report Dictated By: Jay Carmona at 09/17/2018 12:44 PM Report E-Signed By: Jay Carmona at 09/17/2018 12:53 PM WSN:[id number]
--- NOTE | 2018-09-19 08:54 | RT STRESS TEST REPORT ---
FACILITY: [facility] [place] PATIENT NAME: PRICILA MEDINA : [id number] MR: [id number]: [id number] EXAM DATE: ORDERING PHYSICIAN: JENN ORTIZ TECHNOLOGIST: Ivonne Acquisition Time: 2018-09-17 09:23:56 Total Exercise Time: 00:01:00 Test Indications: Chest Discomfort Medications: see nuclear med sheet Protocol: LEXISCAN Max HR: 075 BPM 49% of Pred: 151 BPM Max BP: 144/074 mmHG Max Work Load: 1.0 METS Confirmed by INES CHAN ([id number]), copy editor JENNIE REYNA ([id number]) on 09/19/2018 8:50:26 AM Referred By: Overread By: INES CHAN
== END ==
LOC: NUC 00:56
PROVIDERS: ATTEND Emergency Medicine
DX: R07.9 Chest pain, unspecified (principal)
CPT/HCPCS: 78452; 93017; A9500; J2785